=== PATIENT | male | born 1995 ===

== ENCOUNTER 2018-11-22 09:18 | Emergency (ER) | payer OTHER, BC ==
[~2018-11-22] VITALS: Ht 162.5 cm; Wt 48.1 kg
[2018-11-22] MEDS ORDERED: Motrin,Rufen800 MG PO (13:18)
== END 2018-11-22 13:27 | disposition home or self-care (01) ==
LOC: ED 09:18
DX: S05.01XA Injury of conjunctiva and corneal abrasion without foreign body, right eye, initial encounter (principal); S05.02XA Injury of conjunctiva and corneal abrasion without foreign body, left eye, initial encounter; M25.552 Pain in left hip; M25.512 Pain in left shoulder; R51 Headache; V80.010A Animal-rider injured by fall from or being thrown from horse in noncollision accident, initial encounter; Y93.89 Activity, other specified; Y92.89 Other specified places as the place of occurrence of the external cause; Y99.8 Other external cause status